=== PATIENT | female | born 1995 | race Two or more races ===

== ENCOUNTER 2019-03-30 08:09 | Inpatient (IN) | payer MEDICAID ==
[~2019-03-30] VITALS: Ht 160 cm; Wt 105.2 kg
[2019-03-30] MEDS ORDERED: PREN1COM17 PO (08:48)
[2019-03-30] MEDS ORDERED: FERR325T6 PO (08:54)
[2019-03-30] MEDS ORDERED: VIT1TABL86 PO (08:54)
[2019-03-30] MEDS ORDERED: LACTATED RINGERS 1,000 ML IV SCH (09:50)
[2019-03-30] MEDS ORDERED: METHYLERGONOVINE MALEATE 0.2 MG/ML IM PRN (10:00)
[2019-03-30] MEDS ORDERED: NALOXONE HCL 0.4 MG/ML 1ML VIAL IM PRN (10:00)
[2019-03-30] MEDS ORDERED: LIDOCAINE HCL 1% 20ML VIAL (Pyxis) INJ INFIL PRN (10:00)
[2019-03-30] MEDS ORDERED: DEXT 5%/LR + PITOCIN 20UNITS/L 1,000 ML IV PRN (10:00)
[2019-03-30] MEDS ORDERED: MISOPROSTOL 100MCG TABLET VG PRN (10:00)
[2019-03-30] MEDS ORDERED: CARBOPROST TROMETHAMINE 250 MCG/ML AMPUL IM PRN (10:00)
[2019-03-30] MEDS ORDERED: BUTORPHANOL TARTRATE 2 MG/ML VIAL IV PRN (10:00)
[2019-03-30 10:13] LABS: BASOPHILS % 0.4 % (0.0-2.0); EOSINOPHILS % 0.8 % (0.0-5.0); HEMATOCRIT. 38.4 % (36.0-48.0); HEMOGLOBIN. 13.1 g/dL (12.0-16.0); LYMPHOCYTES % 19.8 % (20.0-50.0); MEAN CORPUSCULAR HEMOGLOBIN 30.5 pg (28.0-32.0); MEAN CORPUSCULAR VOLUME 89.8 fL (81.0-99.0); MEAN PLATELET VOLUME 10.5 fl (7.4-10.4); MONOCYTES % 5.5 % (2.0-8.0); NEUTROPHILS % 73.5 % (40.0-76.0); PLATELET 282 x1000/uL (130-400); RED BLOOD CELL COUNT 4.28 mill/uL (4.2-5.4); RED CELL DISTRIBUTION WIDTH 14.2 % (11.6-14.6)
[2019-03-30 10:18] LABS: INR 0.9; PARTIAL THROMBOPLASTIN TIME 27.4 sec (23.4-31.0); PROTHROMBIN TIME 9.4 sec (9.6-11.0)
[2019-03-30 10:20] LABS: CLARITY URINE TURBID (CLEAR); COLOR URINE YELLOW (YELLOW); KETONES URINE NEGATIVE (NEGATIVE); LEUKOCYTE ESTERASE URINE 2+ (NEGATIVE); NITRITE URINE NEGATIVE (NEGATIVE); OCCULT BLOOD URINE NEGATIVE (NEGATIVE); PROTEIN URINE NEGATIVE (NEGATIVE); SPECIFIC GRAVITY URINE 1.017 (1.005-1.030); UROBILINOGEN URINE 0.2 E.U./dL (0.2-1.0)
[2019-03-30 12:35] LABS: *AMPHETAMINES SCREEN URINE NEGATIVE (NEGATIVE); *BARBITURATES SCREEN URINE NEGATIVE (NEGATIVE); *BENZODIAZEPINES SCREEN URINE NEGATIVE (NEGATIVE); *COCAINE SCREEN URINE NEGATIVE (NEGATIVE)
[2019-03-30 12:36] LABS: CANNABINOID URINE SCREEN NEGATIVE (NEGATIVE); METHADONE URINE SCREEN NEGATIVE (NEGATIVE); OPIATES URINE SCREEN NEGATIVE (NEGATIVE); PHENCYCLIDINE URINE SCREEN NEGATIVE (NEGATIVE)
[2019-03-30 15:46] LABS: HEPATITIS B SURFACE ANTIGEN NEGATIVE
[2019-03-30] MEDS ORDERED: DEXT 5%/LR + PITOCIN 20UNITS/L 1,000 ML IV SCH (20:05)
[2019-03-30] MEDS ORDERED: ROPIVACAINE HCL/PF EPIDURAL 200 ML EPI ONE (20:08)
[2019-03-30] MEDS ORDERED: LANOLIN OINT 7GM TUBE TOP PRN (20:15)
[2019-03-30] MEDS ORDERED: ACETAMINOPHEN WITH CODEINE 300/30MG TABLET PO PRN ×2 (20:15)
[2019-03-30] MEDS ORDERED: BISACODYL 10MG SUPP PR PRN (20:15)
[2019-03-30] MEDS ORDERED: GLYCERIN/WITCH HAZEL LEAF MEDICATED PAD TOP PRN (20:15)
[2019-03-30] MEDS ORDERED: HEMORRHOIDAL SUPP PR PRN (20:15)
[2019-03-30] MEDS ORDERED: METHYLERGONOVINE MALEATE 0.2MG TABLET PO SCH (21:00)
[2019-03-30] MEDS ORDERED: DOCUSATE SODIUM 100MG CAPSULE PO SCH (21:00)
[2019-03-30] MEDS ORDERED: MAGNESIUM/ALUMINUM HYDROXIDE/SIMETHICONE 30ML UDC PO SCH (21:00)
[2019-03-30] MEDS ORDERED: SIMETHICONE 80MG TABLET CHEW PO SCH (21:00)
[2019-03-31 01:30] VITALS: BP 105/61
[2019-03-31 02:02] VITALS: BP 104/60
[2019-03-31] MEDS: IBUPROFEN 800MG TABLET PO PRN ×3 (02:02→16:10)
[2019-03-31 02:25] VITALS: BP 105/60
[2019-03-31 07:38] LABS: BASOPHILS % 0.2 % (0.0-2.0); EOSINOPHILS % 0.1 % (0.0-5.0); HEMATOCRIT. 28.8 % (36.0-48.0); HEMOGLOBIN. 9.8 g/dL (12.0-16.0); LYMPHOCYTES % 10.9 % (20.0-50.0); MEAN CORPUSCULAR HEMOGLOBIN 30.7 pg (28.0-32.0); MEAN CORPUSCULAR VOLUME 90.5 fL (81.0-99.0); MEAN PLATELET VOLUME 10.1 fl (7.4-10.4); MONOCYTES % 7.6 % (2.0-8.0); NEUTROPHILS % 81.2 % (40.0-76.0); PLATELET 224 x1000/uL (130-400); RED BLOOD CELL COUNT 3.18 mill/uL (4.2-5.4); RED CELL DISTRIBUTION WIDTH 14.4 % (11.6-14.6)
[2019-03-31 07:45] VITALS: BP 106/59
[2019-03-31] MEDS ORDERED: PRENATAL VIT/FE FUMARATE/FA TABLET PO SCH (09:00)
[2019-03-31] MEDS ORDERED: FERROUS SULFATE 325MG TABLET PO SCH (09:00)
[2019-03-31 14:00] VITALS: BP 102/52
[2019-03-31 19:30] VITALS: BP 92/52
[2019-04-01 04:00] VITALS: BP 101/55
[2019-04-01] MEDS ORDERED: IBUP-2030 PO (07:09)
[2019-04-01 08:00] VITALS: BP 108/78
== END 2019-04-01 12:30 | disposition home or self-care (01) | DRG 560 ==
LOC: OBSVTOIN 08:09 → 8 EST LDRP 08:09 → 8 EST A/PP 03-31 00:15
PROVIDERS: ADMIT Obstetrics & Gynecology; ATTEND Obstetrics & Gynecology
PROC: 10E0XZZ Delivery of Products of Conception, External Approach (ICD-10-PCS; principal; 2019-03-30)
PROC: 3E0R3BZ Introduction of Anesthetic Agent into Spinal Canal, Percutaneous Approach (ICD-10-PCS; 2019-03-30)
PROC: 00HU33Z Insertion of Infusion Device into Spinal Canal, Percutaneous Approach (ICD-10-PCS; 2019-03-30)
DX: O71.4 Obstetric high vaginal laceration alone (principal); Z37.0 Single live birth; Z3A.39 39 weeks gestation of pregnancy
CPT/HCPCS: 36415; 80305; 81003; 85025; 86592; 86703; 86762; 86850; 86900; 87340; G0378; J2590; J2795; A4315

== ENCOUNTER 2019-04-03 18:03 | Emergency (ER) | payer MEDICAID ==
[~2019-04-03] VITALS: Ht 160 cm; Wt 106.0 kg
[~2019-04-03 18:03] MED LIST: FERR325T6 PO; IBUP-2030 PO; PREN1COM17 PO; VIT1TABL86 PO
[2019-04-03 18:10] VITALS: BP 125/77
== END 2019-04-03 23:58 | disposition left against medical advice (07) ==
LOC: ER 18:03
DX: R10.9 Unspecified abdominal pain (principal); Z53.21 Procedure and treatment not carried out due to patient leaving prior to being seen by health care provider